=== PATIENT | male | born 1990 | race Caucasian/White ===

== ENCOUNTER 2018-08-11 05:47 | Day surgery (SDC) | payer SELFPAY ==
[2018-08-11 06:31] VITALS: BP 109/66; PULSE 59; RESP 14; TEMP 37; O2SAT 97; BMI 27.1
[2018-08-11] MEDS: Cefazolin 2 GM in 0.9% Normal Saline 100 ML IV (07:28)
--- NOTE | 2018-08-11 07:30 | DCINST_ITS ---
Discharge Diet: Light diet - advance as tolerated Discharge Activity: Return to Normal Activity, May Shower Return to work on:: 08/16/18 May resume sexual activity in: 1 week Call your doctor if your incision/area has: Continuous Slow Oozing, Sudden Increased Bleeding, Increased Pain/ Swelling, Increased Redness, Foul Smelling Discharge, Swelling at the incision site Call your doctor if you observe: Fever of 101 or Higher Suture Line Care: Avoid Pulling/Pushing, Avoid Pinching/Bending Instructions: Vasectomy: Risks and Complications Allergies/Adverse Reactions: Allergies No Known Allergies Allergy (Verified 08/04/18 11:00) Medications to take at Discharge NK 08/04/18 Primary Care Physician: Corey Bledsoe MD [Primary Care Provider] - Test Results: Test results from this visit will be discussed in further detail at your follow- up appointment, if applicable. Please Follow Up With: Presley Fraser MD When: call for an appt next week to remove drain.
[2018-08-11] MEDS: Bupivacaine Mpf 0.5% 30 ML VIAL (08:29)
--- NOTE | 2018-08-11 08:36 | OP.PCM_ITS ---
Report of Operation Date of Procedure: 08/11/18 Pre-Operative Diagnosis: Right large symptomatic hydrocele and elective st erilization Post-Operative Diagnosis: The same Surgery/Procedure Performed:: Right hydrocelectomy and bilateral vasectomy Description of Surgical Findings:: 28-year-old male who I saw in the office for consultation on exam was found to have a symptomatic fairly large right hydrocele he also desire to have elective sterilization he and his have several children and he desired to have a vasectomy he and his both signed the consent form for bilateral vasectomy he understands that he will need to use control until both samples are negative and if the drop is off in the office 6 to 8 weeks after the procedure to confirm that there is no sperm in the semen he was given instructions in this he gave verbal understanding regarding this. We talked about the risk of the procedure bleeding infection recurrent hydrocele very rare chance of reversal of failure of the vasectomy. 28-year-old male taken back to the operating room at the smooth induction of general anesthesia he was placed supine on the table the penis and testicles are shaved prepped and draped in usual sterile fashion, I palpated the left vas deferens above the cord infiltrated the skin above the vas deferens with lidocaine and then made a small puncture in the skin and then used the vascular clamp to grab the vas using no scalpel technique to pull up the vas were free the vast of the surrounding tissue with 2 clamps and the vas cut out a segment and burned both the ends and stitch the end to end down away from each other. Then we went to the right side same thing isolated the vas and the skin pulled up the vas to the skin level used the vas clamp to grab the vas using a no scalpel technique then pulled the vas up freed the vast free cut out a segment and burning cauterized both ends of suture ligated both ends away from each other. After performing the vasectomy then I made a small 2 cm transverse incision across the right scrotum dissected down to the hydrocele sac grabbed the hydrocele sac with a Allis clamp open up the sac drain the fluid and then through the small incision I was able to in the pull the sac out extract the sac and extra extracted the testicle and then circumferentially dissected the sac off the testicle use electrocautery to obtain hemostasis there was no bleeding from the testicle testicle was then placed back in the dartos pouch placed the drain around the testicle and then we closed the scrotal incision with a running 4-0 chromic and I closed the skin with a running 4-0 Monocryl subcuticular stitch fashion. After the hydrocele ectomy was performed closed the skin flaps and dressings were placed and instructions given to the patient and he will follow-up next week to remove the drain. Type of Anesthesia:: General Drains: ERIKA drain - Admit VTE Documentation VTE Present on Admission: No VTE Mechan Device Prophylaxis: SCD's
[2018-08-11 08:40] VITALS: BP 109/66; BP 114/71; PULSE 67; RESP 16; TEMP 36.7; O2SAT 99
[2018-08-11 08:45] VITALS: BP 109/66; BP 113/72; PULSE 65; RESP 16; O2SAT 100
[2018-08-11 09:00] VITALS: BP 106/74; BP 109/66; PULSE 66; RESP 16; O2SAT 100
[2018-08-11 09:08] VITALS: BP 109/66; BP 115/71; PULSE 69; RESP 16; TEMP 36.7; O2SAT 100
[2018-08-11 10:06] VITALS: BP 108/68; BP 109/66; PULSE 64; RESP 16; TEMP 36.6; O2SAT 99
--- NOTE | 2018-08-16 12:06 | HP.PCM_ITS ---
History and Physical Date of Admission: 08/13/18 I want to discuss a vasectomy. CC/HPI: 28-year-old male presents for vasectomy consultation we reviewed with involved with a vasectomy and on examination was found to have a very large symptomatic right hydrocele I don't think I can perform the vasectomy in the office with such a large hydrocele's are a set him up for a hydrocelectomy and bilateral vasectomy at the surgery center. plan for R hydrocele and vasectomy ALLERGIES: None MEDICATIONS: None PSH: Hernia Repair NON- PSH: Patient not documented to have received pneumococcal vaccination PMH: Encounter for sterilization - 06/17/2018 Encysted hydrocele, Right - 06/17/2018 NON- PMH: None Immunizations: None FAMILY HISTORY: None SOCIAL HISTORY: Marital Status: Preferred Language: Spanish; Ethnicity: Not Or ; Race: White Current Smoking Status: Patient has never smoked. Tobacco Use Assessment Completed: Used Tobacco in last 30 days? Smoking cessation counseling was provided. Does not use smokeless tobacco. Has never drank. Does not use drugs. Has not had a blood transfusion. REVIEW OF SYSTEMS: Constitutional: Patient denies fever, chills, weight loss, and weight gain. Eyes: Patient denies blurry vision, cataracts, and glaucoma. Ears, Nose, Mouth, Throat: Patient denies hearing loss, sinus infections, and sleep apnea. Cardiovascular: Patient denies chest pains, swollen ankles, irregular heartbeat, and pacemaker/defib. Respiratory: Patient denies shortness of breath, wheezing, oxygen, and cpap machine. Gastrointestinal: Patient denies constipation, vomiting, abdominal pain, nausea, and diarrhea. Genitourinary: Patient denies frequent urination, urinary retention, get up at night to void, leakage of urine, painful urination, blood in the urine, frequent uti's, history of stones, difficulty starting stream, weak stream/scanty, and b edwetting. Musculoskeletal: Patient denies sore muscles, back pain, and gout. Integumentary/Skin: Patient denies rash, skin cancer, and chronic itching. Neurological: Patient denies falling/unsteady, paralysis, and stroke/tia. Hematologic/Lymphatic: Patient denies abnormal bleeding, blood transfusion, swollen lymph nodes, deep venous thrombosis, and pulmonary embolism. VITAL SIGNS: 07/26/2018 11:46 AM Weight 185 lb / 83.91 kg Height 70 in / 177.8 cm BP 136/66 mmHg BMI 26.5 kg/m? PHYSICAL EXAMINATION: Scrotum: No lesions. No edema. No cysts. No warts. Epididymides: Right: no spermatocele, no masses, no cysts, no tenderness, no induration, no enlargement. Left: no spermatocele, no masses, no cysts, no tenderness, no induration, no enlargement. Testes: 5+ cm hydrocele right testis. No tenderness, no swelling, no enlargement left testis. No tenderness, no swelling, no enlargement right testis. Normal location left testis. Normal location right testis. No mass, no cyst, no varicocele, no hydrocele left testis. No mass, no cyst, no varicocele right testis. Urethral Meatus: Normal size. No lesion, no wart, no discharge, no polyp. Normal location. Penis: Circumcised, no warts, no cracks. No dorsal Peyronie's plaques, no left corporal Peyronie's plaques, no right corporal Peyronie's plaques, no scarring, no warts. No balanitis, no meatal stenosis. MULTI-SYSTEM PHYSICAL EXAMINATION: Constitutional: Well-nourished. No physical deformities. Normally developed. Good grooming. Neck: Neck symmetrical, not swollen. Normal tracheal position. Respiratory: No labored breathing, no use of accessory muscles. Normal breath sounds. Cardiovascular: Regular rate and rhythm. No murmur, no gallop. Normal temperature, normal extremity pulses, no swelling, no varicosities. Lymphatic: No enlargement of neck, axillae, groin. Skin: No paleness, no jaundice, no cyanosis. No lesion, no ulcer, no rash. Neurologic / Psychiatric: Oriented to time, oriented to place, oriented to person. No depression, no anxiety, no agitation. Gastrointestinal: No mass, no tenderness, no rigidity, non obese abdomen. Eyes: Normal conjunctivae. Normal eyelids. Ears, Nose, Mouth, and Throat: Left ear no scars, no lesions, no masses. Right ear no scars, no lesions, no masses. Nose no scars, no lesions, no masses. Normal hearing. Normal lips. Musculoskeletal: Normal gait and station of head and neck. PAST DATA REVIEWED: Source Of History: Patient PROCEDURES: Urinalysis - 87096 Dipstick Dipstick Cont'd Specimen: Voided Blood: Neg Appearance: Clear pH: 8.0 Color: Yellow Protein: Neg Glucose: Normal Urobilinogen: Neg Bilirubin: Neg Nitrites: Neg Ketones: Neg Leukocyte Esterase: Neg ASSESSMENT: ICD-10 Details 1 : Encounter for sterilization - Z30.2 2 Encysted hydrocele - N43.0 Right PLAN: Document Letter(s): Created for Patient: Clinical Summary Notes: plan to proceed with Vasectomy at [facility] and hydrocele repair CARE TEAM: Ciera Rodriguez
== END 2018-08-11 10:11 | disposition home or self-care (01) ==
LOC: SDC 05:49 → AC 05:51
PROVIDERS: Family Provider Family Medicine; PCP Family Medicine; Referring Provider Urology; Visit Provider Urology
PROC: (CPT 55040; principal; 2018-08-11 07:15)
DX: Z30.2 Encounter for sterilization (principal); N43.0 Encysted hydrocele
CPT/HCPCS: 00920; 55040; 55250; J7120; J2405